=== PATIENT | male | born 1965 | race Caucasian/White ===

== ENCOUNTER 2017-11-25 03:20 | Emergency (ER) | payer BC, OTHER ==
[2017-11-25] MEDS: ONDANSETRON 4 MG INJ IV (06:46)
[2017-11-25] MEDS: HYDROmorphONE 1 MG/ML SYG IV (06:47)
[2017-11-25] MEDS: KETOROLAC 30 MG INJ IV (06:47)
[2017-11-25] MEDS: NICARDipine HCL 30 MG CAPSULE PO (06:47)
[2017-11-25] MEDS: METHYLPREDNISOLONE 125 MG INJ IV (06:47)
== END 2017-11-25 08:42 | disposition home or self-care (01) ==
LOC: E/R 03:20
DX: M54.41 Lumbago with sciatica, right side (principal); I10 Essential (primary) hypertension; Z87.891 Personal history of nicotine dependence
CPT/HCPCS: 93971; 96374; 96375; 99285-25

== ENCOUNTER 2018-07-08 12:36 | Emergency (ER) | payer BC ==
[2018-07-08] MEDS: predniSONE 20 MG TAB PO (14:40)
[2018-07-08] MEDS: KETOROLAC 30 MG INJ IM (14:40)
[2018-07-08] MEDS: DIAZEPAM 5 MG TAB PO (14:40)
[2018-07-08 14:49] LABS: ADD UMIC NO; UR ASCORBIC ACID NEGATIVE (NEGATIVE); UR BILIRUBIN (Dip) NEGATIVE (NEGATIVE); UR BLOOD (Dip) NEGATIVE (NEGATIVE); UR CLARITY SLIGHTLY CLOUDY (CLEAR); UR COLOR YELLOW (YELLOW); UR GLUCOSE (Dip) NEGATIVE (NEGATIVE); UR KETONES (Dip) TRACE mg/dL (NEGATIVE); UR LEUKOCYTE ESTERASE (Dip) NEGATIVE Leu/ul (NEGATIVE); UR MUCUS MANY /HPF (NONE SEEN); UR NITRITE (Dip) NEGATIVE (NEGATIVE); UR RBC 0 /HPF (0-5); UR SPECIFIC GRAVITY (Dip) 1.019 (1.003-1.030); UR TOTAL PROTEIN (Dip) NEGATIVE (NEGATIVE); UR UROBILINOGEN (Dip) NEGATIVE (NEGATIVE); UR WBC 1 /HPF (0-5)
== END 2018-07-08 17:20 | disposition home or self-care (01) ==
LOC: FTE 12:36
DX: M54.5 Low back pain (principal); I10 Essential (primary) hypertension; Z87.891 Personal history of nicotine dependence
CPT/HCPCS: 72100; 81001; 81003; 96372; 99284-25